=== PATIENT | female | born 1950 | race Caucasian/White ===

== ENCOUNTER 2025-03-22 11:11 | Inpatient (IN) ==
[2025-03-22] MEDS: 0.9 % SODIUM CHLORIDE 500 ML IV ONE (12:22)
[2025-03-22 12:42] LABS: Basophils # (Auto) 0.01 K/mcL (0.00-0.30); Basophils % (Auto) 0.1 % (0.0-2.0); Eosinophils # (Auto) 0 K/mcL (0.00-0.70); Eosinophils % (Auto) 0 % (0.0-7.0); Hematocrit 41.0 % (34.1-44.9); Hemoglobin 14.4 g/dL (11.2-15.7); Lymphocytes # (Auto) 0.41 K/mcL (1.50-4.80); Lymphocytes % (Auto) 4.9 % (15.5-49.0); Mean Corpuscular HGB Conc 35.1 g/dL (31.0-36.0); Monocytes # (Auto) 0.31 K/mcL (0.10-0.90); Monocytes % (Auto) 3.7 % (1.0-12.0); Neutrophils % (Auto) 90.2 % (38.0-78.0); Platelet Count 194 K/mcL (140-440); RBC 4.78 M/mcL (3.59-5.38); WBC 8.4 K/mcL (4.5-11.0)
[2025-03-22 13:08] LABS: Thyroid Stimulating Hormone 1.37 uIU/mL (0.27-5.01)
[2025-03-22 13:20] LABS: ALT/SGPT 116 U/L (<40); AST/SGOT 328 U/L (<32); Albumin 3.8 gm/dL (3.2-5.2); Albumin/Globulin Ratio 1.4 (1.0-2.3); Alkaline Phosphatase 366 U/L (39-117); Anion Gap 18.0 (8.0-16.0); Bilirubin,Total 2.0 mg/dL (0.1-1.0); Blood Urea Nitrogen 44 mg/dL (8-23); Calcium 8.9 mg/dL (8.6-10.4); Carbon Dioxide 19 mmol/L (22-30); Chloride 76 mmol/L (96-108); Globulin 2.8 gm/dL (2.2-3.7); Glucose 94 mg/dL (70-105); Potassium 5.2 mmol/L (3.3-5.1); Sodium 113 mmol/L (133-145)
[2025-03-22 13:50] LABS: INR 13.1 (0.9-1.1); Prothrombin Time 109.1 sec (11.9-14.5)
[2025-03-22] MEDS ORDERED: NICOTINE POLACRILEX 2 MG GUM CHEW/PARK PRN (15:49)
[2025-03-22] MEDS ORDERED: ACETAMINOPHEN 325 MG TABLET PO PRN (15:49)
[2025-03-22] MEDS ORDERED: LACTULOSE 20 GM/30 ML ORAL.SOL PO PRN (15:49)
[2025-03-22] MEDS ORDERED: IPRATROPIUM/ALBUTEROL 3 ML AMPUL.NEB NEB PRN (15:49)
[2025-03-22] MEDS ORDERED: SENNOSIDES 1 TABLET PO PRN (15:49)
[2025-03-22] MEDS ORDERED: ONDANSETRON 4 MG/2 ML VIAL IV PRN (15:49)
[2025-03-22] MEDS: NICOTINE 21 MG PATCH TOPICAL SCH (16:10)
[2025-03-22 16:19] LABS: Bilirubin,Urine Negative (Negative); Color,Urine Yellow; Glucose,Urine (UA) Negative (Negative); Ketones,Urine 15 mg/dL (Negative); Leukocyte Esterase,Urine Small /uL (Negative); PH,Urine 5.5 (5.0-9.0); Protein,Urine Negative (Negative); Specific Gravity,Urine 1.015 (1.000-1.035); Urobilinogen,Urine Normal
[2025-03-22] MEDS: SODIUM CHLORIDE 3 % 100 ML IV ONE (16:55)
[2025-03-22 17:12] LABS: Albumin 3.2 gm/dL (3.2-5.2); Anion Gap 16.0 (8.0-16.0); Blood Urea Nitrogen 39 mg/dL (8-23); Calcium 8.0 mg/dL (8.6-10.4); Carbon Dioxide 19 mmol/L (22-30); Chloride 81 mmol/L (96-108); Glucose 67 mg/dL (70-105); Phosphorous 3.4 mg/dL (2.5-4.5); Potassium 5.0 mmol/L (3.3-5.1); Sodium 116 mmol/L (133-145)
[2025-03-22] MEDS: 0.9 % SODIUM CHLORIDE 10 ML SYRINGE IV SCH (20:43)
[2025-03-23 06:01] LABS: INR 18.6 (0.9-1.1); Prothrombin Time 146.2 sec (11.9-14.5)
[2025-03-23 06:19] LABS: ALT/SGPT 90 U/L (<40); AST/SGOT 295 U/L (<32); Albumin 2.9 gm/dL (3.2-5.2); Albumin/Globulin Ratio 1.5 (1.0-2.3); Alkaline Phosphatase 280 U/L (39-117); Anion Gap 11.0 (8.0-16.0); Bilirubin,Direct 0.8 mg/dL (<0.3); Bilirubin,Total 1.3 mg/dL (0.1-1.0); Blood Urea Nitrogen 30 mg/dL (8-23); Calcium 8.0 mg/dL (8.6-10.4); Carbon Dioxide 23 mmol/L (22-30); Chloride 88 mmol/L (96-108); Globulin 2.0 gm/dL (2.2-3.7); Glucose 65 mg/dL (70-105); Phosphorous 2.5 mg/dL (2.5-4.5); Potassium 4.4 mmol/L (3.3-5.1); Sodium 122 mmol/L (133-145); Triglycerides 94 mg/dL (<150); Uric Acid 7.5 mg/dL (2.5-8.0)
[2025-03-23] MEDS ORDERED: IOPAMIDOL 100 ML BOTTLE IV ONE (07:15)
[2025-03-23] MEDS: PHYTONADIONE 5 MG in 0.9 % SODIUM CHLORIDE 50 ML IV ONE (08:10)
[2025-03-23] MEDS: LEVOTHYROXINE 50 MCG TABLET PO SCH (08:14)
[2025-03-23] MEDS: CELECOXIB 200 MG CAPSULE PO SCH (11:46)
[2025-03-23 18:48] LABS: Sodium 122 mmol/L (133-145)
[2025-03-23 18:57] LABS: INR 1.6 (0.9-1.1); Prothrombin Time 19.8 sec (11.9-14.5)
[2025-03-23] MEDS: SODIUM CHLORIDE 3 % 100 ML IV ONE (20:12)
[2025-03-24 06:43] LABS: INR 1.2 (0.9-1.1); Prothrombin Time 16.6 sec (11.9-14.5)
[2025-03-24 07:19] LABS: ALT/SGPT 91 U/L (<40); AST/SGOT 289 U/L (<32); Albumin 2.9 gm/dL (3.2-5.2); Albumin/Globulin Ratio 1.5 (1.0-2.3); Alkaline Phosphatase 300 U/L (39-117); Anion Gap 11.0 (8.0-16.0); Bilirubin,Direct 0.9 mg/dL (<0.3); Bilirubin,Total 1.7 mg/dL (0.1-1.0); Blood Urea Nitrogen 17 mg/dL (8-23); Calcium 8.0 mg/dL (8.6-10.4); Carbon Dioxide 24 mmol/L (22-30); Chloride 92 mmol/L (96-108); Globulin 2.0 gm/dL (2.2-3.7); Glucose 66 mg/dL (70-105); Phosphorous 2.0 mg/dL (2.5-4.5); Potassium 4.0 mmol/L (3.3-5.1); Sodium 127 mmol/L (133-145); Triglycerides 100 mg/dL (<150); Uric Acid 5.8 mg/dL (2.5-8.0)
[2025-03-24 15:03] VITALS: TEMP 97.7
[2025-03-24 15:27] VITALS: O2SAT 95
== END 2025-03-24 15:45 | disposition hospice, inpatient (51) | DRG 843 ==
LOC: ED 11:11 → ICU 15:40
PROVIDERS: ADMIT Internal Medicine; ATTEND Internal Medicine